=== PATIENT | male | born 1995 | race Caucasian/White ===

== ENCOUNTER 2016-12-26 19:23 | Emergency (ER) | payer MEDICAID ==
[~2016-12-26] VITALS: Ht 175.3 cm; Wt 73.0 kg
[2016-12-26] MEDS ORDERED: ACETAMINOPHEN 325MG TABLET PO ONE (22:00)
[2016-12-26] MEDS ORDERED: BACITRACIN ZINC OINT UDPKT TOP ONE (23:30)
[2016-12-27 00:44] VITALS: BP 110/69
== END 2016-12-27 00:46 | disposition home or self-care (01) ==
LOC: ER 21:59
DX: S00.81XA Abrasion of other part of head, initial encounter (principal); S00.83XA Contusion of other part of head, initial encounter; F31.9 Bipolar disorder, unspecified; W22.8XXA Striking against or struck by other objects, initial encounter; Y93.89 Activity, other specified; Y92.89 Other specified places as the place of occurrence of the external cause; Y99.8 Other external cause status
CPT/HCPCS: 70450; 70486; 99284; X7700; Z7610

== ENCOUNTER 2017-07-29 23:01 | Emergency (ER) | payer MEDICAID ==
[~2017-07-29] VITALS: Ht 170.2 cm; Wt 73.0 kg
[2017-07-29] MEDS ORDERED: ACETAMINOPHEN 325MG TABLET PO STA (23:49)
[2017-07-30 00:09] LABS: BASOPHILS % 0.3 % (0.0-2.0); HEMATOCRIT. 48.8 % (42.0-52.0); HEMOGLOBIN. 16.7 g/dL (14.0-18.0); LYMPHOCYTES % 20.2 % (20.0-50.0); MEAN CORPUSCULAR VOLUME 87.6 fL (80.0-94.0); MEAN PLATELET VOLUME 9.3 fl (7.4-10.4); MONOCYTES % 4.9 % (2.0-8.0); NEUTROPHILS % 72.6 % (40.0-76.0); PLATELET 194 x1000/uL (130-400); RED BLOOD CELL COUNT 5.57 mill/uL (4.7-6.1); RED CELL DISTRIBUTION WIDTH 13.8 % (11.6-14.6)
[2017-07-30 00:17] LABS: CHLORIDE 105 mEq/L (98-107)
[2017-07-30 00:21] LABS: ETHANOL BLOOD < 10 mg/dL
[2017-07-30] MEDS ORDERED: OLANZAPINE 10MG TABLET ODT PO SCH (00:45)
[2017-07-30 02:45] VITALS: BP 118/68
== END 2017-07-30 03:20 | disposition home or self-care (01) ==
LOC: ER 23:15
DX: R44.0 Auditory hallucinations (principal); F32.9 Major depressive disorder, single episode, unspecified; F41.9 Anxiety disorder, unspecified; F17.200 Nicotine dependence, unspecified, uncomplicated
CPT/HCPCS: 36415; 80053; 80307; 80329; 85025; 99284; G0482

== ENCOUNTER 2017-09-06 16:22 | Emergency (ER) | payer MEDICAID ==
[~2017-09-06] VITALS: Ht 177.8 cm; Wt 73.0 kg
[2017-09-06 18:43] VITALS: BP 124/60
== END 2017-09-06 18:43 | disposition home or self-care (01) ==
LOC: ER 16:22
DX: F41.0 Panic disorder [episodic paroxysmal anxiety] (principal)
CPT/HCPCS: 99283